=== PATIENT | female | born 1940 | race Caucasian/White ===

== ENCOUNTER 2022-03-28 10:25 | Emergency (ER) | payer MEDICARE, OTHER ==
[2022-03-28 10:39] VITALS: BP 129/74
--- NOTE | 2022-03-28 11:46 | ED Physician Documentation ---
PD HPI URI - Stated complaint Stated Complaint: C+ WEAKNESS/THROAT PX - Chief complaint Chief Complaint: Resp - History obtained from History obtained from: Patient - History of Present Illness Timing - onset: How many days ago (2) Timing duration: Days (2) Timing details: Gradual onset, Still present (worsening today with more dyspnea and sore throat.), Still present in ED Associated symptoms: Fever, Chills, Nasal congestion, Sore throat, Dry cough. No: Dyspnea, Bilateral edema Contributing factors: Travel (she is traveled to [facility] from [facility]. She feels she got sick from expsoure on plane ride here 10 days ago. She is due to leave later this week though can delay it till next week if needed.), Other (didhome COVID test that was positive this morning.). No: Sick contact Improves by: Rest Worsened by: Activity Similar symptoms before: Diagnosis (did have COVID last year. Is vaccinated fully and believes illness is milder due to it.) Recently seen: Not recently seen (she is requesting Paxlovid kit.) Review of Systems Constitutional: reports: Chills, Myalgias, Fatigue. denies: Fever Nose: reports: Congestion. denies: Rhinorrhea / runny nose Throat: reports: Sore throat Cardiac: denies: Palpitations Respiratory: reports: Dyspnea, Cough, Wheezing GI: reports: Nausea. denies: Abdominal Pain, Vomiting, Diarrhea Skin: denies: Rash Neurologic: denies: Altered mental status, Headache PD PAST MEDICAL HISTORY - Past Medical History Past Medical History: Yes Cardiovascular: Murmur Respiratory: None Neuro: None Endocrine/Autoimmune: None GI: None CLERICAL PROOFREADER: None : None HEENT: None Psych: None Musculoskeletal: None Derm: None Other Past Medical History: CLL, and her meds cause some liver function impairment. she states treatment meds for her CLL have impaired liver function, with latest bilirubin about 4-5 a few weeks ago. - Past Surgical History Past Surgical History: Yes General: Cholecystectomy, Appendectomy, Splenectomy - Present Medications Home Medications: Ambulatory Orders Medication Instructions Recorded Confirmed Albuterol Sulf [Ventolin Hfa 2 - 3 puffs INH QID #1 each 03/28/22 Inhaler] Amoxicillin 875 mg PO BID 03/28/22 03/28/22 - Allergies Allergies/Adverse Reactions: Allergies Allergy/AdvReac Type Severity Reaction Status Date / Time ciprofloxacin [From Cipro] Allergy Cramps Verified 03/28/22 10:40 - Social History Does the pt smoke?: No Smoking Status: Never smoker Does the pt drink ETOH?: No Does the pt have substance abuse?: No - Immunizations Immunizations are current?: Yes PD ED PE NORMAL - Vitals Vital signs reviewed: Yes (very good sats and HR.) - General General: Alert and oriented X 3, No acute distress, Well developed/nourished - HEENT HEENT: PERRL (mildly jaundice/icteric. ), Pharynx benign - Neck Neck: Supple, no meningeal sign, No adenopathy - Cardiac Cardiac: RRR, No murmur - Respiratory Respiratory: Clear bilaterally (with just scattered mild wheezing. ) - Back Back: No CVA TTP - Derm Derm: Normal color, Warm and dry - Extremities Extremities: Normal ROM s pain, No edema, No calf tenderness / cord - Neuro Neuro: Alert and oriented X 3, No motor deficit, No sensory deficit Results - Vitals Vitals: Vital Signs - 24 hr 03/28/22 10:35 Temperature 36.5 C Heart Rate 81 Respiratory 16 Rate Blood Pressure 129/74 O2 Saturation 100 Oxygen O2 Source Room air PD Medical Decision Making - ED course Complexity details: considered differential, d/w patient Drug Therapy Requiring Monitoring for Toxicity: Paxlovid has a dose adjuctment fo rrenal impairment but I did not see any adjustement needed for hepatic impairment. Departure - Departure Disposition: 01 Home, Self Care Clinical Impression: COVID-19 Upper respiratory infection Qualifiers: URI type: unspecified URI Qualified Code(s): J06.9 - Acute upper respiratory infection, unspecified Condition: Stable Record reviewed to determine appropriate education?: Yes Prescriptions: Albuterol Sulf [Ventolin Hfa Inhaler] 2 - 3 puffs INH QID #1 each Comments: Stay well-hydrated. Ibuprofen or naproxen 2-3 times daily if needed for fevers or pains. Use the pack Slo-Bid combination antiviral medications twice daily for 5 days as directed on the packet kit. Follow-up or return to the ER if worsening symptoms over the next few days. If you were to develop increasing wheezing/cough/trouble breathing, you might benefit from use of an inhaler to help open the airways. I wrote a prescription for 1 for you to just have on hand if you were to decide to go that way. Discharge Date/Time: 03/28/22 12:25
[2022-03-28] MEDS ORDERED: NIRMATRELVIR/RITONAVIR PREPACK PO STA (12:06)
== END 2022-03-28 12:25 | disposition home or self-care (01) ==
LOC: ED 10:25
DX: U07.1 COVID-19 (principal); J06.9 Acute upper respiratory infection, unspecified; C91.10 Chronic lymphocytic leukemia of B-cell type not having achieved remission
CPT/HCPCS: 99282; 99283; J3490